=== PATIENT | female | born 1995 | race Caucasian/White ===

== ENCOUNTER 2023-01-25 08:38 | Inpatient (IN) | payer OTHER ==
[~2023-01-25] VITALS: Ht 165.1 cm; Wt 128.8 kg
--- OUTSIDE RECORDS SUMMARY | ~2023-01-25 | XMS | Continuity of Care Document ---
Demographics + + + | Address | [address] | | | [place] [address] | + + + | Preferred Language | Unknown | + + + | Marital Status | | + + + | Yazidi Affiliation | Unknown | + + + | Race | White | + + + | Ethnic Group | Unknown | + + + Author + + + | Author | [facility] | + + + | Organization | [facility] | + + + | Address | [address] | | | [place] [address] | + + + | Phone | | + + + Care Team Providers + + + + | Care Exhaust Emissions Automotive Technician Name | Role | Phone | + + + + Unavailable | Unavailable | + + + + Allergies and Intolerances + + + + + + | date | description | facility | reaction | severity | + + + + + + | (no date) | Penicillins | [facility] | (no reaction) | (no severity) | + + + + + + Encounters No information. Functional Status No information. Immunizations No information. Medications No information. Problems + + + + | date | description | facility | + + + + | 2022-07-07 08:58 | ENCOUNTER FOR SUPRVSN OF | [facility] | | | NORMAL , FIRST | | | | TRIMESTER | | + + + + | 2022-07-07 08:58 | LESS THAN 8 WEEKS | [facility] | | | GESTATION OF | | + + + + | 2022-07-07 08:58 | 8 WEEKS GESTATION OF | [facility] | | | | | + + + + | 2022-09-28 08:50 | ENCOUNTER FOR [facility]PRVSN OF | [facility] | | | NORMAL , SECOND | | | | TRIMESTER | | + + + + | 2022-10-28 07:52 | ENCNTR FOR SUPRVSN OF | [facility] | | | NORMAL FIRST PREG, SECOND | | | | TRIMESTER | | + + + + | 2023-01-04 02:46 | FALSE LABOR BEFORE 37 | [facility] | | | COMPLETED WEEKS OF GEST, | | | | THIRD TRI | | + + + + | 2023-01-04 02:46 | 34 WEEKS GESTATION OF | [facility] | | | | | + + + + | 2023-01-18 16:00 | UTERINE SIZE-DATE | [facility] | | | DISCREPANCY, THIRD TRI | | + + + + | 2023-01-18 16:06 | UTERINE SIZE-DATE | [facility] | | | DISCREPANCY, THIRD TRI | | + + + + | 2023-01-18 16:06 | UTERINE SIZE-DATE | [facility] | | | DISCREPANCY, THIRD | | | | TRIMESTER | | + + + + | 2023-01-18 16:06 | 36 WEEKS GESTATION OF | [facility] | | | | | + + + + | 2023-02-09 07:30 | MATERNAL CARE FOR UNSP | [facility] | | | TYPE SCAR FROM NM | | + + + + Procedures No information. Results/Labs No information. Social History No information. Vital Signs No information."
[2023-02-09 06:10] VITALS: BP 124/84
[2023-02-09 06:25] LABS: AMPHETAMINES, UR NEGATIVE (NEGATIVE); BARBITURATES, UR NEGATIVE (NEGATIVE); BENZODIAZEPINES, UR NEGATIVE (NEGATIVE); BUPRENORPHINE,UR NEGATIVE (NEGATIVE); COCAINE, UR NEGATIVE (NEGATIVE); MARIJUANA (THC), UR NEGATIVE (NEGATIVE); MDMA, UR NEGATIVE (NEGATIVE); METHADONE, UR NEGATIVE (NEGATIVE); METHAMPHETAMINE, UR NEGATIVE (NEGATIVE); OPIATES, UR NEGATIVE (NEGATIVE); OXYCODONE, UR NEGATIVE (NEGATIVE); PHENCYCLIDINE, UR NEGATIVE (NEGATIVE); TRICYCLIC ANTIDEPRESSANT, UR NEGATIVE (NEGATIVE)
[2023-02-09 06:34] LABS: HEMATOCRIT 32.5 % (35.0-50.0); HEMOGLOBIN 10.4 g/dL (12.0-18.0); MCH 25.1 (27-36); MCV 78.3 fl (81-99); RBC 4.15 M/ul (4.3-5.7); RDW 13.3 (10.5-15.0)
[2023-02-09 07:08] LABS: ABO AB; ANTIBODY SCREEN NEGATIVE; RH POSITIVE
--- NOTE | 2023-02-09 08:57 | NUR ---
02/09/23 0857 Sheets,Zuri 0837 PT ARRIVED TO ROM AND REPORT RECEIVED. PT RESTING IN BED AND DENIES CONERNS. HOB INCREASED AND PT DENIES DIZZINESS OR NAUSEA. IV INFUSING WITH 30 PIT AND SITE WNL. 0846 BABY TO CHEST.
[2023-02-09 09:00] VITALS: BP 137/65
[2023-02-10 05:29] LABS: HEMATOCRIT 29.4 % (35.0-50.0); HEMOGLOBIN 9.6 g/dL (12.0-18.0); MCH 25.6 (27-36); MCHC 32.6 g/dl (30-36); MCV 78.4 fl (81-99); RBC 3.74 M/ul (4.3-5.7); RDW 13.5 (10.5-15.0)
--- NOTE | 2023-02-10 07:15 | PR ---
[facility] [address] [place], [place] [address] Signed PP Progress Notes Datetime Report Generated by CPN: 02/10/2023 07:15 SUBJECTIVE: [id number] Pain: Within Normal Limits Nausea/Vomiting: Denies Flatus: Yes Bowel Movement: No Vital Signs: [id number] Vital Signs: Reviewed; Within Normal Limits EXAM: Ongoing Cardiovascular: Normal Respiratory: Normal Abdomen/Uterus: Normal Lochia: Normal Vulva/Perineum: Not Done Breasts: Not Done CVA Tenderness: Normal Extremities: Normal Incision: Normal Progress: Normal Exam Comments: Fundus firm U-2. Incision healing well IMPRESSION/PLAN/PROCEDURES: [id number] Impression: Normal Progression Plan: Continue Present Management Progress Notes: Pt seen and examed. Doing well. Ambulating and tolerating full diet. Pain and lochia minimal. . Esteves in place. No concerns. Antipcate d/c home tomorrow Signing Physician: Bailee Casper DO Copies: ~ *Electronically Signed* 02/10/23714 BAILEE CASPER (MERARI) DO PATIENT NAME: PAUL PEDROZA PROGRESS NOTE DATE OF : 89 PHYSICIAN: BAILEE CASPER) DO RPT #: [id number] REPORT IS CONFIDENTIAL AND NOT TO BE RELEASED WITHOUT AUTHORIZATION
--- NOTE | 2023-02-10 13:30 | NUR ---
MOM IN BED HOLDING BABY. BABY RESTING QUIETLY. DENIED NEEDS. CONSENTED TO PRAYER. PRAYED FOR GOOD BEGINNINGS AND ONGOING BLESSING.
--- NOTE | 2023-02-11 08:34 | PR ---
[facility] [address] [place], [place] [address] Signed PP Progress Notes Datetime Report Generated by CPN: 02/11/2023 08:34 SUBJECTIVE: [id number] Pain: Within Normal Limits Nausea/Vomiting: Denies Flatus: Yes Bowel Movement: No Vital Signs: [id number] Vital Signs: Reviewed; Within Normal Limits EXAM: Ongoing Cardiovascular: Normal Respiratory: Normal Abdomen/Uterus: Normal Lochia: Normal Vulva/Perineum: Not Done Breasts: Not Done CVA Tenderness: Normal Extremities: Normal Incision: Normal Progress: Normal Exam Comments: Fundus firm U-2 nontender. Incision healing well IMPRESSION/PLAN/PROCEDURES: [id number] Impression: Normal Progression Plan: Discharge Progress Notes: Pt seen and examined. Doing well. Ambualting, voiding, and tolerating full diet. Pain and lochia minimal. well. No fevers/chills or other concerns. Desires d/c home today. Planning Nexplanon for pp contraception. Reviewed d/c instructions in detail. All questions answered. Signing Physician: Bailee Casper DO Copies: ~ *Electronically Signed* 02/11/23 0883 BAILEE CASPER (MERARI) DO PATIENT NAME: PAUL PEDROZA PROGRESS NOTE DATE OF : 94 PHYSICIAN: BAILEE CASPER (JD) DO RPT #: [id number] REPORT IS CONFIDENTIAL AND NOT TO BE RELEASED WITHOUT AUTHORIZATION
== END 2023-02-11 09:35 | disposition home or self-care (01) | DRG 788 ==
LOC: FBC 02-09 05:25
PROVIDERS: ADMIT Obstetrics & Gynecology; ATTEND Obstetrics & Gynecology
PROC: 10D00Z1 Extraction of Products of Conception, Low, Open Approach (ICD-10-PCS; principal; 2023-02-09 07:30)
DX: O34.219 Maternal care for unspecified type scar from previous cesarean delivery (principal); O99.344 Other mental disorders complicating childbirth; F41.9 Anxiety disorder, unspecified; O99.214 Obesity complicating childbirth; Z67.30 Type AB blood, Rh positive; Z37.0 Single live birth; Z3A.39 39 weeks gestation of pregnancy
CPT/HCPCS: 01961; 36415; 76942; 85027; 85060; 86850; 86900; 86901; A9270; J0690; J1650; J1885; J2274; J2405; J2590; J2795; J7121

== ENCOUNTER 2024-07-30 22:08 | Emergency (ER) | payer OTHER ==
[~2024-07-30] VITALS: Ht 152.4 cm; Wt 123.4 kg
[~2024-07-30 22:08] MED LIST: JENCYCLA0.35 MG PO
[2024-07-30 22:38] LABS: RBC 4.75 M/ul (4.3-5.7)
[2024-07-30 22:41] LABS: BASOPHILS 0.7 % (0-2); EOSINOPHILS 1.2 % (0-6); HEMOGLOBIN 12.8 g/dL (12.0-18.0); LYMPHOCYTES 34.2 % (24-44); MCH 26.9 (27-36); MCHC 32.7 g/dl (30-36); MCV 82.1 fl (81-99); MONOCYTES 4.8 % (0-12); NEUTROPHILS 59.1 % (39-80); PLATELET COUNT 379 K/uL (140-440); RDW 12.9 (10.5-15.0)
[2024-07-30 23:03] LABS: ABO AB; RH POSITIVE
[2024-07-30 23:08] LABS: ALBUMIN 3.3 g/dL (3.4-5.0); ALBUMIN/GLOBULIN RATIO 0.8 (1.1-2.4); ANION GAP 14.9 (7-21); BILIRUBIN, TOTAL 0.2 mg/dL (0.2-1.0); BUN/CREATININE RATIO 14.11 (6.0-28.6); CALCIUM 8.9 mg/dL (8.5-10.1); CREATININE, SERUM 0.85 mg/dL (0.55-1.02); POTASSIUM 3.9 mmol/L (3.5-5.1); PROTEIN, TOTAL 7.4 g/dL (6.4-8.2)
[2024-07-30 23:34] LABS: BILIRUBIN, URINE NEGATIVE (negative); BLOOD/HGB, URINE LARGE (Negative); KETONE, URINE TRACE (Negative); LEUK ESTERASE, URINE NEGATIVE (negative); NITRITE, URINE NEGATIVE (negative)
[2024-07-30] MEDS ORDERED: HYDROCODONE BIT/ACETAMINOPHEN 5/325 MG 1 TAB HOME.PACK PO PRN (23:45)
[2024-07-30 23:55] LABS: BACTERIA, URINE RARE /hpf (negative); CASTS, URINE NONE SEEN \\lpf; COLLECTION TYPE, URINE CLEAN CATCH; CRYSTALS, URINE NONE SEEN (0-1+); EPITHELIAL CELLS, URINE SQUAMOUS 2+ /lpf (0-1+); REFLEX CULTURE, URINE No (No)
[2024-07-31 00:02] VITALS: BP 122/74
== END 2024-07-31 00:02 | disposition home or self-care (01) ==
LOC: ED 22:08
PROVIDERS: Emergency Medicine
DX: O03.4 Incomplete spontaneous abortion without complication (principal); Z88.0 Allergy status to penicillin; Z91.041 Radiographic dye allergy status; Z79.899 Other long term (current) drug therapy
CPT/HCPCS: 36415; 76801; 80053; 81001; 84702; 85025; 86900; 86901; 99284-25; A9270